=== PATIENT | female | born 1965 | race Caucasian/White ===

== ENCOUNTER → 2018-02-01 12:49 | Outpatient (CLI) | payer MEDICAID ==
[2015-11-04 06:52] VITALS: BMI 25.6
--- NOTE | ~2018-02-01 | EC ---
PATIENT:BLAIR MARSHALL DATE OF SERVICE: 02/01/18 SEX: F MEDICAL RECORD: [id number] DATE OF : 69 [facility] AGE OF PATIENT: 52 ADMISSION DATE: 02/01/18 REFERRING PHYSICIAN: INTERPRETING PHYSICIAN: TANGELA HELLER MD ECHOCARDIOGRAM REPORT ECHO CHARGES 4 ECHO COMPLETE Date: 02/01 CLINICAL DIAGNOSIS: ARRHYTHMIA/DYSPNEA/CP/ PALPITATIONS ECHOCARDIOGRAPHIC MEASUREMENTS (adult normal given) AC root (d.<3.7cm) 3.0 cm LV Septum d (<1.2 cm> 1.0 cm Valve Excursion 2.0 cm LV Septum (systole) 1.4 cm Left Atria (s.<4.0cm> 3.3 cm LVPW d(<1.2cm) 0.9 cm RV (d.<2.3cm) 2.9 cm LVPW (sytole) 1.7 cm LV diastole(<5.6CM) 5.0 cm MV E-F(>70mm/sec) cm LV systole 2.9 cm LVOT Diameter 2.0 cm MV exc.(>10mm) cm Est.ejection fraction (50-75%) % DOPPLER: LVIT cm/sec A 37.0 cm/sec E 85.0 cm/sec LA cm/sec RVSP 30.0 mmHg LVOT 94.0 cm/sec AOP1/2T m/s Asc. Ao 123 cm/sec RVOT 62.0 cm/sec RA cm/sec PA 76.0 cm/sec AV Gradient Peak 6.1 mmHg AV Mean 3.4 mmHg AV Area 2.2 cm MV Gradient Peak 2.7 mmHg MV Mean 0.76 mmHg MV Area cm COMMENTS: Merchandising Director: Francine MORTENSENOE Process Server: Oanh Heller TAPE# PACS Pericardial Effusion N DATE OF SERVICE: PROCEDURE: Transthoracic echocardiogram. FINDINGS: 1. Left ventricle is normal size, normal function, normal shape. Inflow characteristics are normal. 2. The left atrium is normal size, normal function, normal structure. 3. The aortic valve is normal structure and function. Mitral valve normal structure and function with trace mitral regurgitation. ECHOCARDIOGRAM REPORT [id number] BLAIR MARSHALL 4. Tricuspid valve is normal structure and function with trace regurgitation. RVSP is normal. 5. The right ventricle is normal size, normal shape, and normal function. 6. The right atrium is mildly dilated. 7. The pulmonic valve is grossly normal. CONCLUSIONS: This is a normal echocardiogram for the patient's stated age. TRANSINT:[id number] Voice Confirmation ID: [id number] DOCUMENT ID: [id number] TANGELA HELLER MD at 1342 CC: [id number] DICTATION DATE: 02/02/18 08 FITNESS ASSISTANT: 02/02/18 1138 [facility] CLI 02/01/18 [id number] [place] [address]
[~2018-02-01 12:49] MED LIST: CELEXA20 MG PO
== END | disposition home or self-care (01) ==
LOC: D.ECHO 12:49
DX: I49.9 Cardiac arrhythmia, unspecified (principal); M54.5 Low back pain; F41.9 Anxiety disorder, unspecified; R06.02 Shortness of breath; R07.9 Chest pain, unspecified; R00.2 Palpitations; J44.9 Chronic obstructive pulmonary disease, unspecified

== ENCOUNTER 2018-03-08 06:32 | Outpatient (CLI) | payer MEDICAID ==
[~2018-03-08] VITALS: Ht 175.3 cm; Wt 71.4 kg
--- NOTE | ~2018-03-08 | HEMODYNAMI ---
PATIENT:BLAIR MARSHALL MEDICAL RECORD: [id number] : 69 LOCATION:[facility] ADMISSION DATE: 03/08/18 Generatedon:03/08/20188:58 Patient name: BLAIR MARSHALL Patient #: [id number] SSN: [id number] : 1965 Date of study: 03/08/2018 Page: Of Hemodynamic Procedure Report Patient Data Patient Demographics Procedure consent was obtained First Name: BLAIR Gender: Female Last Name: JOANNA : 1965 [facility] Initial: MARIZA Age: 52 year(s) Patient #: [id number] Race: SSN: [id number] Additional ID: [id number] Contact details Address: [address] [place] [address] [address] State: [place] City: [facility] Zip code: [address] Admission Admission Data Admission Date: 03/08/2018 Admission Time: 6:32 Arrival Date: 03/08/2018 Arrival Time: 6:32 Admit Source: Other Insurance Payor: Private health insurance Height (in.): 69 BSA: 1.88 (m2) Height (cm.): 175.26 BMI: 23.63 (kg/m2) Weight (lbs.): 160 Weight (kg.): 72.57 Lab Results Lab Result Date: 03/08/2018 Lab Result Time: 0:00 Biochemistry Name Units Result Min Max BUN mg/dl 13 --(--*-)-- 7 18 Creatinine mg/dl 0.8 --(-*--)-- 0.6 1.3 CBC Name Units Result Min Max Hemoglobin g/dl 14.7 --(-*--)-- 13.5 17.5 Procedure Procedure Types Cath Procedure Diagnostic Procedure [facility] w/Coronaries Sedation Charges Moderate Sedation up to 15 minutes Procedure Description Procedure Date Procedure Date: 03/08/2018 Procedure Start Time: 8:47 Procedure End Time: 8:56 Procedure Staff Name Function Blayne Amin MD Performing Physician Artur Dickinson RN Nurse Yesenia Bethea RT Scrub Madisyn Askew RT Monitor Procedure Data Cath Procedure Fluoroscopy Diagnostic fluoroscopy Total fluoroscopy Time: 1.4 time: 1.4 min min Diagnostic fluoroscopy Total fluoroscopy dose: 120 dose: 120 mGy mGy Contrast Material Contrast Material Type Amount (ml) Isovue 300 24 Entry Location Entry Primary Successful Side Size Upsize Upsize Entry Closure Davidson ccessful Closure Location (Fr) 1 (Fr) 2 (Fr) Remarks Device Remarks Radial Right 6 Fr Mechanical artery Short Compression Estimated blood loss: 5 ml Diagnostic catheters Device Type Used For End Catheter Placement DIAGNOSTIC Dalton 110cm 5 Multi-vessel Fr catheter ([id number]) Angiography Procedure Complications No complications Procedure Medications Medication Administration Route Dosage Oxygen NC 2 l/min Lidocaine 2% added to field 20 Heparin Flush Bag added to field 2 bags (1000units/500ml NS) 0.9% NaCl I.V. 100 ml/hr Radial Cocktail I.A. 1 syringe (Verapomil 2mg/Nitro 400mcg/Heparin 1500units) Versed I.V. 1 mg Fentanyl I.V. 50 mcg Versed I.V. 1 mg Fentanyl I.V. 50 mcg Versed I.V. 1 mg Hemodynamics Rest BSA: 1.88 (m2) HGB: 14.7 (g/dl) O2 Consumption: Estimated: 183.71 (ml/min) O2 Co nsumption indexed: Estimated:97.72 (ml/min/m) Heart Rate: 70 (bpm) Pressure Samples Time Site Value (mmHg) Purpose Heart Use Rate(bpm) 8:51 LV 124/-13,8 EDP 69 8:52 AO 163/139(99) Pullback 68 Gradients Valve Time Site Site 2 Mean SEP/DFP Peak To Heart Use 1 (mmHg) (sec/min) Peak Rate (mmHg) (bpm) Aortic 8:52 LV AO 68 163/139(99) Snapshots Pre Cath Intra NCS Post Cath Vital Signs Time Heart Resp SPO2 etCO2 NIBP (mmHg) Rhythm Pain Sedation Rate (ipm) (%) (mmHg) Status Level (bpm) 8:25:30 71 11 100 0 119/83(96) NSR 0 (11) 10(A) , No pain 8:29:38 70 19 97 0 126/71(106) NSR 0 (11) 10(A) , No pain 8:33:48 69 13 98 28.4 125/73(99) NSR 0 (11) 10(A) , No pain 8:37:55 62 16 98 27.7 134/80(96) NSR 0 (11) 10(A) , No pain 8:42:09 71 18 97 30.7 132/73(87) NSR 0 (11) 10(A) , No pain 8:46:19 68 15 98 32.9 121/79(89) NSR 0 (11) 10(A) , No pain 8:50:27 76 22 100 17.9 115/77(90) NSR 0 (11) 9(A) , No pain 8:54:33 70 13 95 30.7 106/71(90) NSR 0 (11) 10(A) , No pain 8:55:57 69 8 96 28.4 113/68(100) NSR 0 (11) 10(A) , No pain Medications Time Medication Route Dose Verified Delivered Reason Notes E ffectiveness by by 8:24:37 Oxygen NC 2 l/min Blayne Buffie used for Brennan avila MD 8:24:44 Lidocaine 2% added 20ml Blayne Blayne for local to vial Brennan Amin MD anesthetic field TELLO 8:24:52 Heparin Flush added 2 bags Blayne Blayne used for Bag to Brennan Amin MD procedure (1000units/500ml field TELLO NS) 8:25:01 0.9% NaCl I.V. 100 Blayne Buffie Per ml/hr Brennan Dickinson RN physician 8:33:07 Versed I.V. 1 mg Blayne Buffie for sedation Brennan Dickinson RN, MD 8:33:12 Fentanyl I.V. 50 mcg Blayne Buffie for sedation Brennan Dickinson RN, MD 8:39:17 Versed I.V. 1 mg Blayne Buffie for sedation Brennan Dickinson RN, MD 8:48:41 Fentanyl I.V. 50 mcg Blayne Buffie for sedation Brennan Dickinson RN, MD 8:49:44 Versed I.V. 1 mg Blayne Buffie for sedation Brennan Dickinson RN, MD 8:50:35 Radial Cocktail I.A. 1 Blayne Blayne for (Verapomil syringe Brennan Amin MD vasodilation 2mg/Nitro 400mcg/Heparin 1500units) Procedure Log Time Note 8:08:15 Informed consent obtained and on chart 8:08:27 Diagnostic Cath Status : Elective 8:10:47 Artur Dickinson RN sent for patient. Start room use. 8:10:48 Time tracking: Stay late (Procedures after 5:00pm) 8:10:54 Plan of Care:Hemodynamics will remain stable., Cardiac rhythm will remain stable., Comfort level will be maintained., Respiratory function will remain adequate., Patient/ family verbilizes understanding of procedure., Procedure tolerated without complication., Recovers from procedure without complications.. 8:11:53 Admit Source: Other 8:11:59 Patient Height : 69 inches 8:12:12 Patient Weight : 160 lbs 8:12:46 Arrival Date: 03/08/2018 6:32:00 AM 8:12:58 Insurance Payor : Private health insurance 8:14:36 Lab Result : Creatinine 0.8 mg/dl 8:14:36 Lab Result : BUN 13 mg/dl 8:14:36 Lab Result : Hemoglobin 14.7 g/dl 8:19:44 Patient received from Pre/Post Procedure Room to [facility] 2 Alert and oriented. Tansferred to table in Supine position. 8:19:45 Warm blankets applied, and roxana hugger turned on for patient comfort. 8:19:45 Correct patient and procedure confirmed by team. 8:19:46 ECG and BP/O2 sat monitors applied to patient. 8:19:55 H&P Date Dictated: 03/06/2018 Within 30 days and on chart., H&P Addendum completed by physician on day of procedure. (MUST COMPLETE FOR ALL OUTPATIENTS). 8:19:56 Pre-procedure instructions explained to patient. 8:19:56 Pre-op teaching completed and patient verbalized understanding. 8:19:57 Family in waiting room. 8:19:58 Patient NPO since Midnight. 8:24:30 Vital chart was started 8:24:37 Oxygen 2 l/min NC was administered by Artur Dickinson RN; used for procedure; 8:24:44 Lidocaine 2% 20ml vial added to field was administered by Blayne Amin MD; for local anesthetic; 8:24:52 Heparin Flush Bag (1000units/500ml NS) 2 bags added to field was administered by Blayne Amin MD; used for procedure; 8:25:01 0.9% NaCl 100 ml/hr I.V. was administered by Artur Dickinson RN; Per physician; 8:26:52 Baseline sample Acquired. 8::56 Rhythm: sinus rhythm 8::58 Full Disclosure recording started 8:27:01 Is the patient allergic to Iodine/contrast media? No. 8:27:02 Was the patient premedicated? No 8:27:10 Is patient on blood thinner?Yes 8:27:12 ACC The patient was administered the following blood thiners within the last 24 hours: ACCPlavix 8:27:29 Patient diabetic? No. 8:27:30 If diabetic: On Metformin? No 8:27:38 Patient not . Patient has had tubal. 8:27:41 Previous problem with sedation/anesthesia? No ? 8:27:43 Snore? Yes 8:27:47 Sleep apnea? No 8:27:49 Deviated septum? No 8:27:49 Opens mouth fully? Yes 8:27:50 Sticks out tongue? Yes 8:27:55 Airway obstruction? No ? 8:27:59 Dentures? No ? 8:28:04 Pre procedure: right dorsailis pedis pulse 1+ Palpable, but thready & weak; easily obliterated 8:28:05 Pre procedure: left dorsailis pedis pulse 1+ Palpable, but thready & weak; easily obliterated 8:28:07 Patient pain scale 0/10 ?. 8:28:12 IV patent on arrival in left forearm with 0.9% NaCl at O. 8:28:14 Lab results completed and on chart. 8:28:19 Right Radial & Right Groin area was prepped with chlora-prep and draped in sterile fashion 8:28:19 Alarms reviewed by R. N. 8:28:20 Sharps counted by scrub and verified by R.N. 8:28:22 Physician arrived 8:28:23 --------ALL STOP TIME OUT------ 8:28:23 Final Timeout: patient, procedure, and site verified with staff and physician. All members of the team are in agreement. 8:28:25 Right Radial & Right Groin site verified by team. 8:28:28 Physical assessment completed. ASA score P 2 - A patient with mild systemic disease as per Blayne Amin MD. 8:28:31 Sedation plan: IV Moderate Sedation Medication:Versed, Fentanyl 8:28:36 Use device set Radial Dx or PCI 8:28:37 ACIST Syringe (51128) opened to sterile field. 8:28:37 Medline Cath Pack ([id number]) opened to sterile field. 8:28:38 Bag Decanter (2002S) opened to sterile field. 8:28:38 DIAGNOSTIC WIRE .035 260cm J wire (923310) opened to sterile field. 8:28:39 ACIST Hand Control (74861) opened to sterile field. 8:28:40 ACIST Manifold (54630) opened to sterile field. 8:28:40 Tegaderm 4 x 4 (1626W) opened to sterile field. 8:28:41 MBrace Wrist Support ([id number]) opened to sterile field. 8:28:42 SHEATH 6Fr Prelude Radial ([id number]) opened to sterile field. 8:33:07 Versed 1 mg I.V. was administered by Artur Dickinson RN; for sedation; 8:33:12 Fentanyl 50 mcg I.V. was administered by Artur Dickinson RN; for sedation; 8:39:17 Versed 1 mg I.V. was administered by Artur Dickinson RN; for sedation; 8:39:44 Zero performed for pressure channel P1 8:47:36 Zero performed for pressure channel P1 8:47:44 Procedure started. 8:47:52 Local anesthetic to right radial artery with Lidocaine 2% by Blayne Amin MD.INITIAL ACCESS ONLY 8:48:41 Fentanyl 50 mcg I.V. was administered by Artur Dickinson RN; for sedation; 8:49:00 A 6 Fr Short sheath was inserted into the Right Radial artery 8:49:10 A DIAGNOSTIC Dalton 110cm 5 Fr catheter ([id number]) was advanced over the wire and used for Multi-vessel Angiography. 8:49:44 Versed 1 mg I.V. was administered by Artur Dickinson RN; for sedation; 8:50:35 Radial Cocktail (Verapomil 2mg/Nitro 400mcg/Heparin 1500units) 1 syringe I.A. was administered by Blayne Amin MD; for vasodilation; 8:51:40 LV hemodynamics recorded. 8:51:42 LV gram done using AHMADI 8:51:46 Injector settings: Ml/sec: 12, Volume: 8, 8:52:06 EF : 60 % 8:52:29 RCA angiography performed. 8:52:32 Injector settings: Ml/sec: 3, Volume: 6, 8:52:41 LCA angiography performed. 8:52:52 Injector settings: Ml/sec: 3, Volume: 6, 8:53:29 Catheter removed. 8:54:09 TR BAND Standard ([id number]) opened to sterile field. 8:54:23 Sheath removed intact; hemostasis achieved with Mechanical Compression to the Right Radial artery. 8:54:29 Procedure ended.(Physican Out) 8:55:15 Fluoroscopy time 01.40 minutes. 8:55:20 Fluoroscopy dose: 120 mGy 8:55:20 Flurop Dose total: 120 8:55:24 Contrast amount:Isovue 300 24ml. 8:55:26 Sharps counted by scrub and verified by R.N. 8:55:30 TR band inflated with 12cc of air. 8:55:32 Insertion/operative site no bleeding no hematoma. 8:55:43 Post right radial artery:stable 8:55:44 Post Procedure Pulses reassessed and unchanged 8:55:47 Post procedure rhythm: unchanged. 8:55:51 Estimated blood loss: 5 ml 8:55:52 Post procedure instruction explained to patient.Patient verbalizes understanding. 8:55:53 Patient needs reinforcement of post procedure teaching. 8:56:16 Procedure type changed to Cath procedure, Diagnostic procedure, LHC, LHC w/Coronaries, Sedation Charges, Moderate Sedation up to 15 minutes 8:56:19 Procedure and supply charges have been captured, reviewed, submitted and are correct. 8:56:23 Procedure Complication : No complications 8:56:26 Vital chart was stopped 8:56:26 See physician's report for complete and final results. 8:56:31 Report given to Pre/Post Procedure Room. 8:56:33 Patient transfered to Pre/Post Procedure Room with Stretcher. 8:56:35 Procedure ended. 8:56:35 Full Disclosure recording stopped 8:56:44 End room use (Document Last) Device Usage Item Name Manufacture Quantity Catalog Number Hospital Part Current M inimal Lot# / Charge Number Stock Stock Serial# Code ACIST Syringe Acist 1 74036 739900 051190 601109 2 0 (97740) [employer] Medline Cath Cardinal 1 [id number] 559921 90105 283747 5 Pack Health ([id number]) Bag Decanter Microtek 1 2001S 302142 56293 176194 5 (2001S) Medical Inc. DIAGNOSTIC WIRE [place] 1 499077 264129 903104 286196 3 0 .035 260cm J wire (361111) ACIST Hand Acist 1 15700 311271 115404 389256 5 Control (99266) [employer] ACIST Manifold Acist 1 67991 528879 541331 218748 5 (75252) [employer] Tegaderm 4 x 4 3M 1 1626W 235972 716472 436572 5 (1626W) MBrace Wrist Advanced 1 140-0250-00 478374 82241 534196 5 Support Vascular ([id number]) Dynamics SHEATH 6Fr Merit 1 [id number] 239123 807101 084791 5 Prelude Radial Medical ([id number]) DIAGNOSTIC Terumo 1 40-2110 322752 849330 873401 5 Dalton 110cm 5 Fr catheter (846519) TR BAND Terumo 1 [id number] 159446 714200 875292 4 0 Standard ([id number]) Signature Audit Waleska Stage Time Signature Unsigned Intra-Procedure 03/08/2018 Madisyn Askew 8:57:49 AM RT(R) Signatures Monitor : Madisyn Askew RT Signature : Date : Time : [facility] [address] [place] [address]
[2018-03-08] MEDS ORDERED: NORCO 7.5/325 T1 TA1 PO (06:52)
[2018-03-08] MEDS ORDERED: CELEXA20 MG PO (06:53)
[2018-03-08] MEDS ORDERED: NAPROXEN250 MG PO (06:53)
[2018-03-08] MEDS ORDERED: ATIVAN0.5 MG PO (06:54)
[2018-03-08 07:04] VITALS: BP 116/66; Ht 175.3 cm; Wt 71.4 kg
[2018-03-08 07:28] LABS: BASOPHILS 0.7 % (0-2); EOSINOPHILS 2.6 % (0-7); HEMATOCRIT 43.5 % (36.0-48.0); HEMOGLOBIN 14.7 g/dL (12-16); LYMPHOCYTES 39.2 % (15-50); MCH 33.3 pg (26.0-34.0); MCHC 33.8 g/dL (31.0-37.0); MCV 98.6 fL (80.0-100.0); MEAN PLATELET VOLUME 9.7 fL (7.4-10.4); MONOCYTES 5.8 % (2-11); NEUTROPHILS 51.7 % (40-80); PLATELET COUNT 290 10x3/uL (130-400); RBC 4.41 10x6/uL (4.00-5.40); RDW 12.5 % (11.5-14.5); WBC 7.4 10x3/uL (4.8-10.8)
[2018-03-08 07:41] LABS: CALC OSMOLALITY 285 mosm/kg (275-300); CALCIUM 9.6 mg/dL (8.5-10.1); CARBON DIOXIDE 28.7 mmol/L (21.0-32.0); CHLORIDE - SERUM 106 mmol/L (98-107); CREATININE - SERUM 0.8 mg/dL (0.6-1.3); GLUCOSE 84 mg/dL (74-106); POTASSIUM - SERUM 3.6 mmol/L (3.5-5.1); SODIUM 144 mmol/L (136-145); UREA NITROGEN 13 mg/dL (7-18); eGFR NON AFRICAN AMERICAN 80 mL/min (90-120)
== END 2018-03-08 11:00 | disposition home or self-care (01) ==
LOC: D.CATH 06:32
PROVIDERS: Internal Medicine Cardiovascular Disease
DX: R07.9 Chest pain, unspecified (principal); R94.39 Abnormal result of other cardiovascular function study; Z01.812 Encounter for preprocedural laboratory examination